=== PATIENT | male | born 1945 | race Caucasian/White ===

== ENCOUNTER 2019-12-10 12:46 | Inpatient (IN) | payer OTHER ==
[~2019-12-10] VITALS: Ht 180.3 cm; Wt 71.0 kg
[2019-12-10 13:43] LABS: Eosinophils # (auto) 0 uL; Eosinophils % (auto) 0.4 % (0.0-7.0); Mean Corpuscular Volume 70.8 fL (80.0-100.0)
[2019-12-10 13:44] LABS: Basophils # (auto) 0 uL; Basophils % (auto) 0.3 % (0.0-2.0); Hematocrit 36.7 % (41.0-53.0); Mean Corpuscular Hemoglobin 23.2 pg (28.0-32.0); Mean Corpuscular Hgb Conc. 32.7 g/dL (32.0-36.0); Monocytes # (auto) 1.8 uL; Monocytes % (auto) 15.8 % (0.0-12.0); Neutrophils # (auto) 8.4 uL; Neutrophils % (auto) 74.5 % (37.0-80.0); Platelet Count (auto) 134 10^3/uL (140-450); Red Blood Cells 5.18 10^6/uL (4.5-5.90); Red Cell Distribution Width 16.1 % (11.8-14.3); White Blood Cell 11.2 10^3/uL (4.4-10.8)
[2019-12-10] MEDS ORDERED: TETANUS-DIPTH-ACEL PERTUSSIS 0.5ML SYR Tdap IM ONE (13:45)
[2019-12-10 13:59] LABS: Albumin 3.6 g/dL (3.4-5.0); Anion Gap 7 (5-15); Blood Urea Nitrogen 15 mg/dL (7-18); Calcium 8.4 mg/dL (8.5-10.1); Carbon Dioxide 28 mmol/L (21-32); Chloride 92 mmol/L (98-107); Glucose 116 mg/dL (74-106); Potassium 3.8 mmol/L (3.5-5.1); Sodium 127 mmol/L (136-145)
[2019-12-10 14:05] LABS: Alanine Aminotransferase 18 U/L (16-61); Alkaline Phosphatase 109 U/L (45-117); Aspartate Aminotransferase 17 U/L (15-37); BUN/Creatinine Ratio 19.5; Bilirubin, Total 0.4 mg/dL (0.2-1.0); GFR African American 126 mL/min; GFR Non-African American 104 mL/min; Total Protein 6.9 g/dL (6.4-8.2)
[2019-12-10] MEDS ORDERED: levoFLOXacin 500MG 100 ML IV ONE (15:30)
[2019-12-10] MEDS ORDERED: traMADol HCL 50 MG TAB PO PRN (16:45)
[2019-12-10] MEDS ORDERED: ALBUTEROL SULF 2.5 MG/0.5ML(0.5%) NEB SOLN NEB PRN (16:45)
[2019-12-10] MEDS ORDERED: LACTULOSE 20Gm/30ML SOLN PO PRN ×2 (16:45)
[2019-12-10] MEDS ORDERED: NITROGLYCERIN 0.4 MG SL TAB SL PRN (16:45)
[2019-12-10] MEDS ORDERED: ACETAMINOPHEN 500 MG TAB PO PRN (16:45)
[2019-12-10] MEDS ORDERED: ONDANSETRON HCL 4 MG/2 ML VIAL IV PRN (16:45)
[2019-12-10] MEDS ORDERED: MORPHINE SULF INJ 2 MG/ML SYRINGE 1ML IV PRN (16:45)
[2019-12-10] MEDS ORDERED: LABETALOL HCL 5 MG/ML ML 20ML VIAL IV PRN (16:45)
[2019-12-10] MEDS: SODIUM CHLORIDE 0.9% 1,000 ML IV SCH (16:59)
[2019-12-10] MEDS: DOXYCYCLINE 100MG/250ML 250 ML IV SCH ×2 (16:59→19:00)
[2019-12-10 17:10] LABS: CRP High Sensitivity 0.25 mg/dL (< 0.3)
[2019-12-10] MEDS: ALBUTEROL SULF 2.5 MG/0.5ML(0.5%) NEB SOLN NEB SCH (17:25)
[2019-12-10] MEDS: IPRATROPIUM BROM 0.5 MG/2.5ML INH SOL NEB SCH (17:25)
[2019-12-10] MEDS ORDERED: methylPREDNISolone SOD SUCC 40 MG/ML VL IV ONE (17:30)
[2019-12-10 18:00] VITALS: BP 117/57
--- NOTE | 2019-12-10 18:37 | NUR ---
PATIENT ARRIVED TO UNIT DID NOT RECEIVE REPORT. PATIENT ALERT AND ORIENTED X4 PATIENT ORIENTED TO UNIT STAFF CALL LIGHT POC PATIENT VERBALIZED UNDERSTANDING. DENIES ALL PAIN SOB AND DISTRESS AT THIS TIME. PATIENT AMBULATED TO BATHROOM WITH A STEADY GAIT BUT WAS EDUCATED TO CALL WHENEVER HE NEEDS TO GET UP. BED IS IN LOWEST LOCKED POSITION CALL LIGHT WITHIN REACH WILL CONTINUE TO MONITOR
[2019-12-10] MEDS ORDERED: MET50T PO (19:04)
[2019-12-10] MEDS ORDERED: HYDR-4296 PO (19:04)
[2019-12-10] MEDS ORDERED: LISI-646 PO (19:04)
[2019-12-10] MEDS ORDERED: HYDR25TA4 PO (19:04)
[2019-12-10] MEDS ORDERED: AMLO5TAB15 PO (19:04)
[2019-12-10] MEDS ORDERED: FOLI1TAB6 PO (19:04)
[2019-12-10] MEDS ORDERED: ASPI-404 PO (19:05)
--- NOTE | 2019-12-10 19:31 | NUR ---
Opening Shift Note Received report and assumed care of patient. Patient is awake and alert. No signs or symptoms of distress noted, patient currently denies pain. Instructed patient on plan of care and to call for assistance as needed. Will continue to monitor.
[2019-12-10 21:57] VITALS: BP 133/77
[2019-12-10] MEDS ORDERED: methylPREDNISolone SOD SUCC 40 MG/ML VL IV SCH (22:00)
[2019-12-10] MEDS ORDERED: ATORVASTATIN 20 MG TAB PO SCH (22:00)
--- NOTE | 2019-12-11 00:39 | NUR ---
Patient refusing midnight troponin lab draws Patient refusing lab draws. Explained risks and benefits of having labs drawn, continues to refuse. Will continue to monitor.
[2019-12-11] MEDS: ALBUTEROL SULF 2.5 MG/0.5ML(0.5%) NEB SOLN NEB SCH ×3 (00:43→11:42)
[2019-12-11] MEDS: IPRATROPIUM BROM 0.5 MG/2.5ML INH SOL NEB SCH ×3 (00:43→11:42)
[2019-12-11] MEDS: DOXYCYCLINE 100MG/250ML 250 ML IV SCH (04:40)
[2019-12-11 04:50] LABS: Urine Bacteria FEW /hpf (None Seen); Urine Blood Negative /uL (Negative); Urine Hyaline Cast FEW /lpf (0 - 2); Urine Mucus FEW (None Seen); Urine Specific Gravity 1.012 (1.001-1.035); Urine WBC 1 /hpf (0 - 3)
[2019-12-11 04:58] LABS: Alcohol, Urine < 3.0 mg/dL (0-5); Amphetamine Screen, Urine NEGATIVE (NEGATIVE); Barbiturate Scree,Urine NEGATIVE (NEGATIVE); Benzodiazephine Screen, Urine NEGATIVE (NEGATIVE); Cannabinoid Screen, Urine NEGATIVE (NEGATIVE); Cocaine Screen, Urine NEGATIVE (NEGATIVE); Opiate Scree,Urine NEGATIVE (NEGATIVE); Phencyclidine Screen, Urine NEGATIVE (NEGATIVE)
[2019-12-11 04:59] LABS: Basophils # (auto) 0 uL; Eosinophils # (auto) 0 uL; Hemoglobin 12.4 g/dL (13.5-17.5); Lymphocytes # (auto) 0.5 uL; Monocytes # (auto) 0.1 uL; Neutrophils % (auto) 91.6 % (37.0-80.0)
[2019-12-11 05:00] VITALS: BP 130/73
[2019-12-11 05:01] LABS: Basophils % (auto) 0.1 % (0.0-2.0); Hematocrit 37.1 % (41.0-53.0); Mean Corpuscular Hemoglobin 23.5 pg (28.0-32.0); Mean Corpuscular Hgb Conc. 33.5 g/dL (32.0-36.0); Mean Corpuscular Volume 70.2 fL (80.0-100.0); Monocytes % (auto) 1.3 % (0.0-12.0); Platelet Count (auto) 125 10^3/uL (140-450); Red Blood Cells 5.28 10^6/uL (4.5-5.90); Red Cell Distribution Width 15.9 % (11.8-14.3); White Blood Cell 6.6 10^3/uL (4.4-10.8)
[2019-12-11 05:19] LABS: Potassium 3.9 mmol/L (3.5-5.1)
[2019-12-11 05:26] LABS: Albumin 3.4 g/dL (3.4-5.0); BUN/Creatinine Ratio 16.7; Bilirubin, Total 0.6 mg/dL (0.2-1.0); Calcium 8.5 mg/dL (8.5-10.1); Total Protein 6.8 g/dL (6.4-8.2)
[2019-12-11] MEDS: SODIUM CHLORIDE 0.9% 1,000 ML IV SCH (06:53)
[2019-12-11 08:35] VITALS: BP 128/64
[2019-12-11] MEDS ORDERED: ASPirin 81 mg TAB PO SCH (10:00)
[2019-12-11] MEDS ORDERED: ENOXAPARIN SOD 40 MG/0.4 ML SYRINGE SC SCH (10:00)
[2019-12-11] MEDS ORDERED: NICOTINE 21MG/24 HR TOPICAL PATCH TD ONE (12:30)
[2019-12-11] MEDS ORDERED: LORazepam 2MG/ML-1ML VIAL IV PRN (12:30)
[2019-12-11] MEDS ORDERED: LORazepam 2MG/ML-1ML VIAL IV ONE (12:30)
[2019-12-11 13:00] VITALS: BP 108/65
--- NOTE | 2019-12-11 14:20 | NUR ---
PT IS LEAVING AGAINST MEDICAL ADVICE. MD DR. MARADIAGA WAS AT BEDSIDE THIS MORNING AND IS AWARE OF THE PATIENT'S WISHES. PRIMARY NURSE AND MD BOTH EDUCATED THE PT THAT THERE ARE NO BENEFITS TO LEAVING THE HOSPITAL AGAINST MEDICAL ADVICE. DISCUSSED RISKS WITH THE PATIENT INCLUDING STROKE AND ASSOCIATED S/S. PT VERBALIZED UNDERSTANDING AND IS ALERT AND ORIENTED X4. IV CATHETER WAS REMOVED, TIP INTACT. MADE CONTACT WITH PATIENT'S DAUGHTER ESA TO PICK THE PATIENT UP. DR MARADIAGA ALSO SPOKE WITH THE PATIENT'S DAUGHTER TODAY ABOUT THE PATIENT'S PLAN OF CARE WELL HIS WISHES TO LEAVE THE HOSPITAL.
[2019-12-11] MEDS ORDERED: DOXYCYCLINE 100 MG TAB/CAP PO SCH (22:00)
[2019-12-12] MEDS ORDERED: NICOTINE 21MG/24 HR TOPICAL PATCH TD SCH (10:00)
== END 2019-12-11 14:22 | disposition left against medical advice (07) | DRG 74 ==
LOC: ER 12:46 → EDBD 12:46 → TELE 12:47 → TELE-CENTR 18:38
PROVIDERS: ADMIT Internal Medicine; ATTEND Internal Medicine
DX: G90.8 Other disorders of autonomic nervous system (principal); E87.1 Hypo-osmolality and hyponatremia; R55 Syncope and collapse; D72.829 Elevated white blood cell count, unspecified; I25.10 Atherosclerotic heart disease of native coronary artery without angina pectoris; I10 Essential (primary) hypertension; D69.6 Thrombocytopenia, unspecified; F17.210 Nicotine dependence, cigarettes, uncomplicated; J43.2 Centrilobular emphysema; Z85.828 Personal history of other malignant neoplasm of skin; Z91.19 Patient's noncompliance with other medical treatment and regimen; Z95.1 Presence of aortocoronary bypass graft; Z88.0 Allergy status to penicillin; Z53.29 Procedure and treatment not carried out because of patient's decision for other reasons
CPT/HCPCS: 36415; 70450; 71045; 71250; 72131; 80053; 80307; 81001; 82550; 83880; 84443; 84484; 85025; 85379; 85652; 86141; 87070; 87205; 90471; 90715; 93005; 93306; 93886; 94640; 96365; 96367; 96375; G0378; J1956; J3490

== ENCOUNTER 2020-07-31 13:14 | Emergency (ER) | payer OTHER ==
[~2020-07-31] VITALS: Ht 180.3 cm; Wt 68.0 kg
[~2020-07-31 13:14] MED LIST: AMLO5TAB15 PO; ASPI-543 PO; FOLI1TAB6 PO; HYDR-4296 PO; HYDR25TA4 PO; LISI-646 PO; MET50T PO
[2020-07-31] MEDS ORDERED: SODIUM CHLORIDE 0.9% 1,000 ML IV ONE (14:30)
[2020-07-31] MEDS ORDERED: TAMSULOSIN HYDROCHLORIDE 0.4 MG CAP PO ONE (14:30)
[2020-07-31 15:23] VITALS: BP 126/62
[2020-07-31 15:31] LABS: Urine Bacteria NONE SEEN /hpf (None Seen); Urine Blood Negative /uL (Negative); Urine WBC 3 /hpf (0 - 3)
== END 2020-07-31 16:01 | disposition home or self-care (01) ==
LOC: EDBD 13:14 → ER 13:14
DX: R33.9 Retention of urine, unspecified (principal); R30.0 Dysuria; I11.0 Hypertensive heart disease with heart failure; I50.9 Heart failure, unspecified; J44.9 Chronic obstructive pulmonary disease, unspecified; E78.5 Hyperlipidemia, unspecified; Z88.0 Allergy status to penicillin; Z88.1 Allergy status to other antibiotic agents; Z79.899 Other long term (current) drug therapy
CPT/HCPCS: 81001

== ENCOUNTER 2020-08-11 00:59 | Inpatient (IN) | payer OTHER ==
[~2020-08-11] VITALS: Ht 180.3 cm; Wt 61.9 kg
[2020-08-11 04:30] LABS: Hemoglobin 12.1 g/dL (13.5-17.5); Mean Corpuscular Hemoglobin 21.8 pg (28.0-32.0); Mean Corpuscular Hgb Conc. 32.7 g/dL (32.0-36.0); Mean Corpuscular Volume 66.6 fL (80.0-100.0); Platelet Count (auto) 146 10^3/uL (140-450); Red Blood Cells 5.54 10^6/uL (4.5-5.90); White Blood Cell 18.3 10^3/uL (4.4-10.8)
[2020-08-11] MEDS ORDERED: ALBUTEROL SULF 2.5 MG/0.5ML(0.5%) NEB SOLN NEB ONE (04:30)
[2020-08-11] MEDS ORDERED: IPRATROPIUM BROM 0.5 MG/2.5ML INH SOL NEB ONE (04:30)
[2020-08-11 04:32] LABS: Red Cell Distribution Width 20.1 % (11.8-14.3)
[2020-08-11 04:33] LABS: Basophils % (manual) 0 (0.0-2.0); Blast Cells 0; Eosinophils % (manual) 0 (0-7); Metamyelocytes % 0; Myelocytes % 0; Promyelocytes % 0; Reactive Lymphocytes 0
[2020-08-11 04:35] LABS: Urine Bacteria NONE SEEN /hpf (None Seen); Urine Blood 2+ /uL (Negative); Urine Hyaline Cast FEW /lpf (0 - 2); Urine Mucus FEW (None Seen); Urine Specific Gravity 1.023 (1.001-1.035); Urine WBC 21 /hpf (0 - 3)
[2020-08-11] MEDS ORDERED: ALBUTEROL SULF 2.5 MG/0.5ML(0.5%) NEB SOLN ONE (04:42)
[2020-08-11] MEDS ORDERED: IPRATROPIUM BROM 0.5 MG/2.5ML INH SOL ONE (04:42)
[2020-08-11 04:49] LABS: Alanine Aminotransferase 33 U/L (16-61); Albumin 2.2 g/dL (3.4-5.0); Anion Gap 7 (5-15); BUN/Creatinine Ratio 35.6; Blood Urea Nitrogen 16 mg/dL (7-18); Calcium 8.4 mg/dL (8.5-10.1); Carbon Dioxide 32 mmol/L (21-32); Chloride 89 mmol/L (98-107); GFR African American 235 mL/min; GFR Non-African American 194 mL/min; Glucose 101 mg/dL (74-106); Magnesium 1.9 mg/dL (1.6-2.6); Potassium 4.2 mmol/L (3.5-5.1); Sodium 128 mmol/L (136-145)
[2020-08-11 04:52] LABS: INR 1.07 (0.9-1.15); Partial Thromboplastin Time 28.5 sec (23.0-31.2)
[2020-08-11 04:57] LABS: Alkaline Phosphatase 142 U/L (45-117); Aspartate Aminotransferase 26 U/L (15-37); Bilirubin, Total 0.7 mg/dL (0.2-1.0); Total Protein 6.3 g/dL (6.4-8.2)
[2020-08-11 05:08] LABS: Band Neutrophils % (manual) 13; Lymphocytes % (manual) 7 (10.0-50.0); Monocytes % (manual) 13 (0-12)
[2020-08-11] MEDS ORDERED: LORazepam 2MG/ML-1ML VIAL IM ONE (06:15)
[2020-08-11] MEDS ORDERED: diphenhdrAMINE HCL 50 MG/1 ML VL IM ONE (06:15)
[2020-08-11] MEDS ORDERED: ONDANSETRON HCL 4 MG/2 ML VIAL IV PRN (09:15)
[2020-08-11] MEDS ORDERED: ALBUTEROL SULF 2.5 MG/0.5ML(0.5%) NEB SOLN NEB PRN (09:15)
[2020-08-11] MEDS ORDERED: ACETAMINOPHEN 500 MG TAB PO PRN (09:15)
[2020-08-11] MEDS ORDERED: MORPHINE SULF INJ 2 MG/ML SYRINGE 1ML IV PRN ×2 (09:15)
[2020-08-11] MEDS ORDERED: NITROGLYCERIN 0.4 MG SL TAB SL PRN (09:15)
[2020-08-11] MEDS ORDERED: traMADol HCL 50 MG TAB PO PRN (09:15)
[2020-08-11] MEDS ORDERED: cefTRIAXone 1GM/50ML D5W 50 ML IV ONE (09:15)
[2020-08-11] MEDS ORDERED: LACTULOSE 20Gm/30ML SOLN PO PRN (09:15)
[2020-08-11] MEDS: methylPREDNISolone SOD SUCC 40 MG/ML VL IV SCH ×2 (09:48→21:51)
[2020-08-11] MEDS: FAMOTIDINE 20 MG TAB PO SCH ×2 (09:49→21:51)
[2020-08-11] MEDS: AZITHROMYCIN 500MG/ 250ML 250 ML IV SCH (09:49)
[2020-08-11] MEDS ORDERED: ENOXAPARIN SOD 40 MG/0.4 ML SYRINGE SC SCH (10:00)
[2020-08-11] MEDS: SODIUM CHLORIDE 0.9% 1,000 ML IV SCH (13:00)
[2020-08-11] MEDS ORDERED: SODIUM CHLORIDE 0.9% 1,750 ML IV ONE (13:00)
--- NOTE | 2020-08-11 14:25 | NUR ---
Telemetry admit from ER [facility] admitted to Telemetry unit after SBAR received. Patient oriented to ANGEL BARBOSA RN primary RN, unit, room, bed, and unit policies regarding patient care and visiting hours. Patient now on continuous telemetry monitoring, tele box #82 and telemetry reading on arrival to unit is SR. Patient placed on bedside oxygen, weighed by bedscale and encouraged to call if they need something. All questions and concerns addressed, patient verbalized understanding.
--- NOTE | 2020-08-11 16:00 | NUR ---
THIS RN NOTIFIED THE PRIMARY RN THAT THE PATIENT REQUIRES A MRSA OF THE NARES PER PROTOCOL. PRIMARY RN VERBALIZED UNDERSTANDING.
[2020-08-11 16:34] VITALS: BP 114/67
[2020-08-11] MEDS: ALBUTEROL SULF 2.5 MG/0.5ML(0.5%) NEB SOLN NEB SCH ×3 (17:40→23:45)
[2020-08-11] MEDS: IPRATROPIUM BROM 0.5 MG/2.5ML INH SOL NEB SCH ×3 (17:40→23:45)
--- NOTE | 2020-08-11 19:20 | NUR ---
Opening Shift Note Assumed care of patient after receiving report from ALEIDA Leahy. Patient is awake and alert with no S/S of distress/SOB or pain. Call light within reach, HOB semi fowlers, bed in lowest, locked position x2 side rails. Instructed on POC and to call for assist PRN, will continue to monitor for changes Q1hr and PRN.
[2020-08-11 21:33] VITALS: BP 152/69
[2020-08-11] MEDS: cefTRIAXone 1GM/50ML D5W 50 ML IV SCH (21:51)
[2020-08-11 22:00] VITALS: BP 143/69
--- NOTE | 2020-08-11 22:00 | NUR ---
BP reassessed RN was made aware of elevated BP of 152/69 and HR 62. RN reassessed BP after readjusting cuff position and had reading of 143/69 and HR 63.
--- NOTE | 2020-08-11 23:00 | NUR ---
Scheduled medication not due at this time. Scheduled 23:00 IV fluids NS @100 ml/hr not due, current bag still running with approximately 700 ml remaining. Will administer when current bag complete.
[2020-08-12 02:44] VITALS: BP 143/69
[2020-08-12] MEDS: SODIUM CHLORIDE 0.9% 1,000 ML IV SCH ×2 (02:49→10:12)
[2020-08-12 04:35] VITALS: BP 144/68
--- NOTE | 2020-08-12 05:37 | NUR ---
BM noted, patient cleaned and optifoam to sacrum reapplied. Patient tolerated intervention well.
[2020-08-12] MEDS: ALBUTEROL SULF 2.5 MG/0.5ML(0.5%) NEB SOLN NEB SCH ×3 (06:59→18:37)
[2020-08-12] MEDS: IPRATROPIUM BROM 0.5 MG/2.5ML INH SOL NEB SCH ×3 (06:59→18:37)
--- NOTE | 2020-08-12 08:00 | NUR ---
OPENING SHIFT NOTE: PATIENT RESTING IN BED, AWAKE A/OX3. PATIENT UPSET ABOUT CHANNEL OF TV HE IS WATCHING, THIS RN ATTEMPTED TO SHOW PATIENT HOW TO USE REMOTE/CALL LIGHT. PATIENT GETTING MORE FRUSTRATED, AND UNABLE TO RETURN DEMONSTRATION. BREAKFAST TRAY DELIVERED, ASSISTED MINIMALLY. PATIENT REPOSITIONED FOR COMFORT, RESPIRATIONS EVEN AND UNLABORED, NOTED A MOIST NON-PRODUCTIVE COUGH. BAUTISTA HUNG BELOW BLADDER, FREE OF KINKS. BED ALARM ON FALL PRECAUTIONS IN PLACE, WILL CONTINUE TO MONITOR.
[2020-08-12 08:32] VITALS: BP 136/67
[2020-08-12] MEDS ORDERED: ACETYLCYSTEINE 10 %(100MG/ML) SOL 4ML NEB SCH (10:00)
[2020-08-12] MEDS: cefTRIAXone 1GM/50ML D5W 50 ML IV SCH ×2 (10:12→21:52)
[2020-08-12] MEDS: methylPREDNISolone SOD SUCC 40 MG/ML VL IV SCH ×2 (10:12→21:52)
[2020-08-12] MEDS: FAMOTIDINE 20 MG TAB PO SCH ×2 (10:12→21:52)
[2020-08-12] MEDS: AZITHROMYCIN 500MG/ 250ML 250 ML IV SCH (10:13)
--- NOTE | 2020-08-12 10:50 | NUR ---
WOUND CARE NOTE: WOUND CARE IN TO SEE PATIENT PER WOUND CARE REQUEST. PATIENT ADMITTED TO [facility] FOR PNEUMONIA, SEPSIS, UTI, AND MASTOIDITIS. BEDSIDE NURSE NOTED SKIN INTEGRITY ISSUE UPON ADMISSION. PHOTOGRAPHS TAKEN AT THAT TIME FOR REFERENCE. PATIENT CONI SCORE IS 12. PATIENT NOTED TO HAVE NON-BLANCHABLE REDNESS TO SACRUM. CLEANSED WITH NORMAL SALINE, PATTED DRY, APPLIED ZGUARD AND COVERED WITH OPTIFOAM GENTLE SACRAL DRESSING. RECOMMEND: FREQUENT Q2HOUR REPOSITIONING CONDITION PERMITS. REDISTRIBUTE PRESSURE UTILIZING PILLOWS AND WEDGES. BID/PRN DRESSING CHANGE. DIETARY CONSULT. SKIN/WOUND CARE PLAN. CONTINUED MONITORING BY WOUND CARE TEAM. Addendum: 08/12/20 at 1509 by LILIYA OSEGUERA RN RN Amended: Links added.
[2020-08-12] MEDS: NICOTINE 14 MG/24HR TOPICAL PATCH TD SCH (11:53)
--- NOTE | 2020-08-12 12:21 | NUR ---
Nutrition Assessment/Consult Notes Please refer to link for full assessment notes. Est Energy needs: 4374-9807 kcals (23-25 kcal/kgBW) Est Protein needs: 65-71 gms/day (1.0-1.1 gm/kgBW) Will continue to monitor and reassess prn. Addendum: 08/12/20 at [address] Amended: Links added.
[2020-08-12 13:00] VITALS: BP 134/64
--- NOTE | 2020-08-12 13:30 | NUR ---
MD HOLLIDAY ROUNDING: PATIENT REQUESTING TO SPEAK WITH MD REGARDING PREDNISONE, MD HOLLIDAY ADDRESSED PATIENT CONCERNS AT BEDSIDE, PATIENT VERBALIZED UNDERSTANDING.
--- NOTE | 2020-08-12 13:56 | NUR ---
PATIENT REFUSING LABS X2 TODAY: PATIENT REPORTS, "THEY POKED MY ARMS 350 TIMES! I HAVE NO BLOOD LEFT!" THIS RN SPENT >15MIN TRYING TO EDUCATE PATIENT, AND WAS UNSUCCESSFUL.
[2020-08-12] MEDS: ACETYLCYSTEINE 10 %(100MG/ML) SOL 4ML NEB SCH ×2 (15:39→18:37)
[2020-08-12 16:15] VITALS: BP 134/64
--- NOTE | 2020-08-12 16:20 | NUR ---
assessment re: consult for living situation and needing help Patient is a 74 year old male. Per patients daughter Bhavani Prior to admission patient lived home alone and functioned with Des assistance. Per Bhavani she is with patient 12 hours a day. Per Bhavani patient has a hospital bed, wheelchair, bedside commode, and rollator for home use. Patients PCP is Dr Walsh in [place]. Per Bhavani the extra help she needs is home health for PT and home health aid. Patient will also benefit from home health safety. Bhavani verbalized understanding and agreed to discharge plan home. Addendum: 08/12/20 at 1626 by Gem DIANE Amended: Links added.
--- NOTE | 2020-08-12 18:33 | NUR ---
CARE ENDORSED TO NOC RN.
--- NOTE | 2020-08-12 19:00 | NUR ---
Opening Shift Note Assumed care of patient after receiving report from day RN. Patient is awake and alert with no S/S of distress/SOB or pain. Call light within reach, bed in lowest, locked position x2 side rails. Instructed on POC and to call for assist PRN, will continue to monitor for changes Q1hr and PRN.
--- NOTE | 2020-08-12 20:33 | NUR ---
Call from daughter Received call from patients daughter Bhavani requesting information and update on plan of care regarding patient. No password set up at this time, verified with patient that it is okay to update daughter and discuss information. Set up password with daughter: Delvis. Per daughter Bhavani, she is power of privacy attorney. Per daughter Bhavani, patient had previously been seen at [facility] where he was being treated with Levofloxacin for a fungal pneumonia with an additional PO antibiotic. Patients daughter is requesting that patient be placed back on Levofloxacin instead of other antibiotics. Per daughter Bhavani, patient was supposed to receive home health for PT and the administration of the IV antibiotic levofloxacin but no one had seen patient for home health. Daughter was updated on plan of care and call was transferred into patient room to talk to patient.
--- NOTE | 2020-08-12 20:45 | NUR ---
Password updated Password: Delvis. Updated by daughter (POA). Updated in interventions.
[2020-08-12 21:00] VITALS: BP 134/64
[2020-08-13] MEDS: ALBUTEROL SULF 2.5 MG/0.5ML(0.5%) NEB SOLN NEB SCH ×4 (00:18→19:11)
[2020-08-13] MEDS: IPRATROPIUM BROM 0.5 MG/2.5ML INH SOL NEB SCH ×4 (00:18→19:12)
[2020-08-13] MEDS: ACETYLCYSTEINE 10 %(100MG/ML) SOL 4ML NEB SCH ×4 (00:19→19:12)
[2020-08-13 05:00] VITALS: BP_SYST 102; BP_SYST 160; BP_DIAS 74; BP_DIAS 78
[2020-08-13 09:00] VITALS: BP 150/100
[2020-08-13] MEDS: methylPREDNISolone SOD SUCC 40 MG/ML VL IV SCH (09:00)
[2020-08-13] MEDS: cefTRIAXone 1GM/50ML D5W 50 ML IV SCH ×2 (09:00→22:39)
[2020-08-13] MEDS: AZITHROMYCIN 500MG/ 250ML 250 ML IV SCH (09:01)
[2020-08-13] MEDS: ENOXAPARIN SOD 40 MG/0.4 ML SYRINGE SC SCH (09:02)
[2020-08-13] MEDS: FAMOTIDINE 20 MG TAB PO SCH ×2 (09:02→22:39)
[2020-08-13] MEDS: NICOTINE 14 MG/24HR TOPICAL PATCH TD SCH (09:02)
--- NOTE | 2020-08-13 09:35 | NUR ---
PHYSICAL THERAPY: PT SHANIQUA REPORTED PATIENT ABLE TO STAND AT BEDSIDE. PATIENT SUSPICIOUS OF EQUIPMENT, NOT TRUSTING THE BEDSIDE CHAIR'S STURDINESS. WILL CONTINUE TO MONITOR.
--- NOTE | 2020-08-13 10:18 | NUR ---
MD MG MOLINA.
--- NOTE | 2020-08-13 11:08 | NUR ---
INCENTIVE SPIROMETER: PATIENT ABLE TO REACH 1000ML ON IS. PATIENT REPORTS THAT HE HAS "THIS MACHINE AT HOME." PATIENT AGREES TO PERFORM IS 10X PER HOUR.
--- NOTE | 2020-08-13 11:09 | NUR ---
NEW IV: LEFT UPPER ARM PIV PATIENT REPORTING PAIN. IV DISCONTINUED PER PATIENT REQUEST AND AGREE WITH NEW PIV IN OTHER ARM. AFTER ONE ATTEMPT, 22G PLACED IN THE LEFT FA.
[2020-08-13 13:00] VITALS: BP 142/72
--- NOTE | 2020-08-13 14:01 | NUR ---
PATIENT REFUSING LABS. EDUCATION GIVEN, PATIENT NON-COMPLIANT.
[2020-08-13 17:00] VITALS: BP 153/95
--- NOTE | 2020-08-13 18:45 | NUR ---
CARE ENDORSED TO NOC RN.
--- NOTE | 2020-08-13 19:20 | NUR ---
Opening Shift Note Assumed care of patient, awake and alert. On and off confusion. Q2 turn. No S/S of distress/SOB or pain. Instructed on POC and to call for assist PRN, will continue to monitor for changes Q1hr and PRN. Addendum: 08/14/20 at 0341 by OTTONIEL MCPHERSON RN RN Bed in low locked position, bed alarm on, nonskid socks on, call light within reach.
[2020-08-13 21:00] VITALS: BP 143/68
[2020-08-13 21:22] LABS: Basophils # (auto) 0 10 ^3/uL (0-0.2); Eosinophils # (auto) 0 10 ^3/uL (0-0.8); Hemoglobin 9.7 g/dL (13.5-17.5); Lymphocytes # (auto) 0.5 10 ^3/uL (0.4-5.4); White Blood Cell 10.8 10^3/uL (4.4-10.8)
[2020-08-13 21:23] LABS: Hematocrit 29.3 % (41.0-53.0); Lymphocytes % (auto) 4.5 % (10.0-50.0); Mean Corpuscular Hemoglobin 21.8 pg (28.0-32.0); Mean Corpuscular Hgb Conc. 33.1 g/dL (32.0-36.0); Mean Corpuscular Volume 65.9 fL (80.0-100.0); Monocytes # (auto) 1.7 10 ^3/uL (0-1.3); Monocytes % (auto) 15.9 % (0.0-12.0); Neutrophils # (auto) 8.6 10 ^3/uL (1.6-8.6); Neutrophils % (auto) 79.6 % (37.0-80.0); Platelet Count (auto) 151 10^3/uL (140-450); Red Blood Cells 4.45 10^6/uL (4.5-5.90); Red Cell Distribution Width 19.3 % (11.8-14.3)
[2020-08-13 21:37] LABS: Calcium 7.9 mg/dL (8.5-10.1); Potassium 4.3 mmol/L (3.5-5.1)
--- NOTE | 2020-08-13 23:00 | NUR ---
IV removal IV DC'd with clean sterile technique, catheter fully intact. Pressure dressing applied to site. Patient tolerated well. NOTE:
--- NOTE | 2020-08-13 23:21 | NUR ---
IV insertion IV access obtained, via clean sterile technique by inserting 22 gauge catheter at R Forearm after 2 attempt(s). IV secured properly. No trauma to site. Patient tolerated well. NOTE:
[2020-08-14] MEDS: IPRATROPIUM BROM 0.5 MG/2.5ML INH SOL NEB SCH ×4 (00:14→19:34)
[2020-08-14] MEDS: ALBUTEROL SULF 2.5 MG/0.5ML(0.5%) NEB SOLN NEB SCH ×4 (00:14→19:34)
[2020-08-14] MEDS: ACETYLCYSTEINE 10 %(100MG/ML) SOL 4ML NEB SCH ×4 (00:15→19:34)
[2020-08-14 05:00] VITALS: BP 146/73
--- NOTE | 2020-08-14 07:05 | NUR ---
Closing shift event Patient resting in bed. No sob, no chest pain, no acute distress seen. Bed in low locked position, call light within reach, non skid socks on. bed alarm on.
[2020-08-14 08:51] VITALS: BP 158/61
[2020-08-14] MEDS: cefTRIAXone 1GM/50ML D5W 50 ML IV SCH ×2 (09:31→21:25)
[2020-08-14] MEDS: FAMOTIDINE 20 MG TAB PO SCH ×2 (09:32→21:25)
[2020-08-14] MEDS: ENOXAPARIN SOD 40 MG/0.4 ML SYRINGE SC SCH (09:32)
[2020-08-14] MEDS: NICOTINE 14 MG/24HR TOPICAL PATCH TD SCH (09:34)
[2020-08-14] MEDS: methylPREDNISolone SOD SUCC 40 MG/ML VL IV SCH (09:35)
[2020-08-14] MEDS: AZITHROMYCIN 500MG/ 250ML 250 ML IV SCH (10:00)
--- NOTE | 2020-08-14 10:25 | NUR ---
DOCTOR MG AT BEDSIDE, INFORMED PATIENT HAS BEEN REFUSING BLOOD DRAWS FOR LAB. PATIENT STATED TO MD HE DOESNT WANT LABS DRAWN ON HIM " I'VE HAD TOO MANY HOLES PUT IN MY ARMS, AND IM NOT GETTING POKED AGAIN" MD INFORMED PATIENT OF RISK OF NOT HAVE LABS DRAWN PER PATIENT "I DONT CARE NO ONE IS TOUCHING ME''.
--- NOTE | 2020-08-14 10:28 | NUR ---
ATTEMPTED TO CONTACT PATIENTS DAUGHTER ESA MAFEDERICA IS FULL WILL TRY AGAIN.
[2020-08-14 13:00] VITALS: BP 129/75
--- NOTE | 2020-08-14 14:48 | NUR ---
SECOND ATTEMPT TO CONTACT PATIENTS DAUGHTER ESA NATHAN IS FULL, WILL TRY AGAIN.
--- NOTE | 2020-08-14 15:01 | NUR ---
D/C Planning Per social service consult for home health physical therapy and RN evaluation. Faxed clinical information to [facility]. Per Jyoti with [facility] patient has been accepted and service will start within 24-48hrs upon d/c day. KIMANI Rocha will obtain authorization from [employer].
--- NOTE | 2020-08-14 15:12 | NUR ---
I faxed home health order to Sallie at [facility] ([facility]) and requested authorization for [facility].
[2020-08-14 16:53] VITALS: BP 146/78
--- NOTE | 2020-08-14 19:30 | NUR ---
PATIENTS DAUGHTER DOWN AND FRONT LOBBY. RN SPOKE WITH ESA RN INFORMED ESA THAT DOCTOR HOLLIDAY WANTED TO SPEAK TO HER AND TRIED CALLING MULTIPLE TIME. PER ESA HER PHONE WAS ON SILENT ALL DAY. ESA WAS INFORMED THAT PATIENT WAS REFUSING LAB WORK AND DIDNT WANT ANY MEDICAL INTERVENTIONS. PER ESA SHE WANTS HER DAD TO GO BACK TO [facility] BECAUSE SHE "DIDNT TRUST THIS HOSPITAL" AND HER FATHER WAS DOING BETTER UNDER THERE CARE. ESA WAS INSTRUCTED TO CALL AND SPEAK WITH DOCTOR HOLLIDAY TOMORROW MORNING TO ADDRESS HER CONCERNS AND WISHES. ESA STATED SHE WOULD CALL BACK IN THE AM.
--- NOTE | 2020-08-14 19:35 | NUR ---
Opening Shift Note Assumed care of patient, awake and alert, with periods of confusion. No S/S of distress/SOB or pain. Instructed on POC and to call for assist PRN, will continue to monitor for changes Q1hr and PRN.
--- NOTE | 2020-08-14 21:30 | NUR ---
Patient refused lab draws despite explaining the reason and importance of it.
[2020-08-14 22:18] VITALS: BP 139/78
--- NOTE | 2020-08-15 00:56 | NUR ---
PT REQUESTED NOT TO BE WOKEN UP FOR HER MED NEB TX. PT IS SLEEPING COMFORTABLY NO DISTRESS NOTED @ THIS TIME.
[2020-08-15] MEDS: ALBUTEROL SULF 2.5 MG/0.5ML(0.5%) NEB SOLN NEB SCH ×4 (00:58→18:40)
[2020-08-15] MEDS: ACETYLCYSTEINE 10 %(100MG/ML) SOL 4ML NEB SCH ×4 (00:58→18:42)
[2020-08-15] MEDS: IPRATROPIUM BROM 0.5 MG/2.5ML INH SOL NEB SCH ×4 (00:58→18:40)
[2020-08-15 04:46] VITALS: BP 139/78
[2020-08-15 05:13] VITALS: BP 151/85
[2020-08-15 08:30] VITALS: BP 140/73
[2020-08-15] MEDS: ENOXAPARIN SOD 40 MG/0.4 ML SYRINGE SC SCH (09:46)
[2020-08-15] MEDS: cefTRIAXone 1GM/50ML D5W 50 ML IV SCH ×2 (09:46→21:27)
[2020-08-15] MEDS: FAMOTIDINE 20 MG TAB PO SCH ×2 (09:46→21:27)
[2020-08-15] MEDS: NICOTINE 14 MG/24HR TOPICAL PATCH TD SCH (09:46)
[2020-08-15] MEDS: methylPREDNISolone SOD SUCC 40 MG/ML VL IV SCH (09:47)
--- NOTE | 2020-08-15 09:55 | NUR ---
I called [facility] [phone] and spoke with Zaina, she said they did receive the home health request, [id number] will fax me a copy of the authorization.
[2020-08-15] MEDS: AZITHROMYCIN 500MG/ 250ML 250 ML IV SCH (10:00)
--- NOTE | 2020-08-15 10:26 | NUR ---
ATTEMPTED TO CONTACT PATIENTS DAUGHTER ESA VENITA WAS LEFT BY DOCTOR HOLLIDAY.
--- NOTE | 2020-08-15 10:40 | NUR ---
ATTEMPTED TO CONTACT PATIENTS DAUGHTER ESA VENITA LEFT BY RN.
--- NOTE | 2020-08-15 10:45 | NUR ---
PT refused PT stating he is tired from doing exercises this morning.
--- NOTE | 2020-08-15 12:27 | NUR ---
Respiratory note: PT DECLINED CPT WITH MEDNEB TX DUE TO PAIN IN CHEST. PT GIVEN MEDNEB TX WITHOUT CPT WITH NO ADVERSE EFFECTS NOTED. WILL CONTINUE TO MONITOR PT.
[2020-08-15 12:30] VITALS: BP 114/81
--- NOTE | 2020-08-15 14:40 | NUR ---
Nutrition Followup Notes Pt wt is 68.0 kg Pt was sleeping when rounded this morning. Pt is with a 2gm Sodium diet, appetite is good aeb ave 85% PO intake over 4 meals per RN doc. Est Energy needs: 8692-3286 kcals (23-25 kcal/kgBW) Est Protein needs: 65-71 gms/day (1.0-1.1 gm/kgBW) Will continue to monitor and reassess prn. LABS: Na 127 L, Gluc 149 L, Ca 7.9 L, Alb 2.2 L GI: Pt is incontinent, last BM noted on 08/12 per RN doc BS: 13 mod risk. Refer to wound assessment report for full details. PES: Altered nutrition related lab values r/t current medical condition aeb hypocalcemia, hypoalbuminemia Comments Will continue to monitor PO status, skin status, pertinent labs and weight trends. Will f/u in 3-5 days. 1) Continue to carefully monitor pt PO intake to meet at least 75% of meals 2) Consider a daily MVI with 500mg VitC BID 3) If albumin continues trending down consider Prostat 1 pkt BID 4) Continue current plan of care
--- NOTE | 2020-08-15 16:45 | NUR ---
Received phone call from monitor Baileyu that patient was in Afib with RVR, ekg performed and read to doctor Wang. New orders received see emr for orders.
[2020-08-15 17:00] VITALS: BP 139/74
[2020-08-15] MEDS ORDERED: METOPROLOL TARTRATE 1MG/1ML-5ML VIAL IV PRN (17:00)
--- NOTE | 2020-08-15 19:30 | NUR ---
Opening Shift Note Assumed care of patient, awake and alert. No S/S of distress/SOB or pain. Instructed on POC and to call for assist PRN, will continue to monitor for changes Q1hr and PRN.
--- NOTE | 2020-08-15 20:00 | NUR ---
Family updated on pt status Family(Bhavani) of [facility] updated on patient's status and condition. All questions and concerns addressed. upset and informed her that Dr. Piña and ALEIDA Acevedo was trying to reach her but no answer.
[2020-08-15 22:14] VITALS: BP 162/78
--- NOTE | 2020-08-15 23:00 | NUR ---
Family updated on pt status Family (Bhavani) of [facility] updated on patient's status and condition stated she gonna come soon to lemon picker her father and go AMA.
--- NOTE | 2020-08-15 23:20 | NUR ---
spoke with the daughter Bhavani and changed her mind stated she gonna come in the morning to brain picker her father.
[2020-08-16] MEDS: IPRATROPIUM BROM 0.5 MG/2.5ML INH SOL NEB SCH ×4 (00:41→12:46)
[2020-08-16] MEDS: ACETYLCYSTEINE 10 %(100MG/ML) SOL 4ML NEB SCH ×4 (00:41→12:46)
[2020-08-16] MEDS: ALBUTEROL SULF 2.5 MG/0.5ML(0.5%) NEB SOLN NEB SCH ×4 (00:41→12:46)
[2020-08-16 05:00] VITALS: BP 143/75
--- NOTE | 2020-08-16 06:59 | NUR ---
Respiratory note: PT REFUSED MEDNEB TX AT THIS TIME, SAYS HE DOES NOT WANT TO TAKE IT BECAUSE HE IS GOING HOME SOON. HR 64, RR 16, SPO2 92% ON ROOM AIR. BREATH SOUNDS DIMINISHED T/O. NO S/S OF DISTRESS. ADVISED PT TO CALL FOR RT IF HE CHANGES HIS MIND. RT NAME AND PAGER NUMBER ON WHITEBOARD.
--- NOTE | 2020-08-16 07:30 | NUR ---
Opening Shift Note Assumed patient care from NOC RN. Patient currently sitting up in bed for breakfast. No signs of distress at this time. Respirations even and unlabored. Will continue to monitor q1hr and PRN.
--- NOTE | 2020-08-16 07:32 | NUR ---
closing note endorsed care to day RN, no sign of distress at this time
--- NOTE | 2020-08-16 08:50 | NUR ---
Paged RT Paged RT for breathing treatment per patient request.
[2020-08-16 09:00] VITALS: BP 144/75
--- NOTE | 2020-08-16 09:16 | NUR ---
Respiratory note: PT CHANGED HIS MIND AND REQUESTING BREATHING TX AT THIS TIME. PT SEEN AND ADMINISTERED MEDNEB TX, REFUSED CPT. TOLERATED TX, NO ADVERSE REACTIONS. SPO2 93% ON ROOM AIR. BREATH SOUNDS COARSE CRACKLES. NO S/S OF DISTRESS.
--- NOTE | 2020-08-16 10:30 | NUR ---
at Bedside Dr. Piña at bedside discussing plan of care with patient. New orders received to discontinue greenfield catheter. Patient to discharge today.
[2020-08-16] MEDS ORDERED: DOXY-286 PO (10:34)
[2020-08-16] MEDS: ENOXAPARIN SOD 40 MG/0.4 ML SYRINGE SC SCH (10:37)
[2020-08-16] MEDS: cefTRIAXone 1GM/50ML D5W 50 ML IV SCH (10:37)
[2020-08-16] MEDS: methylPREDNISolone SOD SUCC 40 MG/ML VL IV SCH (10:37)
[2020-08-16] MEDS: FAMOTIDINE 20 MG TAB PO SCH (10:38)
--- NOTE | 2020-08-16 10:55 | NUR ---
Lynch Removed Lynch Catheter removed. No signs of distress at this time, patient tolerated well. Catheter intact. 1300cc clear, yellow urine drained.
[2020-08-16 11:46] VITALS: BP 144/75
--- NOTE | 2020-08-16 11:52 | NUR ---
Family in [facility] Patient's daughter, Bhavani, in [facility] to picker box operator patient. Patient's daughter informed that discharge is not yet completed and that patient will be sent home with antibiotics. Per Bhavani, will not sign AMA at this time, so patient may receive discharge instructions and prescriptions. Addendum: 08/16/20 at 1336 by DEWAYNE MORALES RN RN Per Bhavani, patient has a cardiology appointment [place] at [facility] for potential pacemaker placement."
--- NOTE | 2020-08-16 12:04 | NUR ---
[phone] and spoke with Clara to make her aware that patient is discharging home today-she said they did receive the authorization and they will send a nurse out within 24-48 hours. I made nurse Crouch aware that home health arrangements are complete.
--- NOTE | 2020-08-16 12:10 | NUR ---
Patient Dressed Patient ready for discharge, patient currently refusing to get into wheelchair so he "can have a few bites of taco." Patient finished taco and assisted to wheelchair by this RN and PT, Israel. Patient shows no signs of distress at this time. Respirations even and unlabored.
--- NOTE | 2020-08-16 12:16 | NUR ---
Lobby This RN and PT, Israel, waited with patient in the front lobby. Per volunteer desk, Patient's daughter, Bhavani, will return-she left due to patient not being ready. Daughter called, states "[she] is turning around."
--- NOTE | 2020-08-16 12:38 | NUR ---
Discharge Discharge instructions given as ordered. Encourage to follow up with PMD as instructed. All questions and concerns addressed. Patient verbalized understanding. Medication reconciliation form completed and copy given to patient. IV removed with catheter intact, pressure dressing applied, greenfield catheter removed-patient and daughter refused to stay for first void-urinal provided, patient educated on need for first void, patient verbalized understanding. Telemetry unit returned to ICU. Patient taken to vehicle via wheelchair with all personal belongings, accompanied by staff and family member. No distress noted at time of departure. Patient and family [facility] Discharge information provided for [facility]. Contact information provided. Addendum: 08/16/20 at 1342 by DEWAYNE MORALES RN RN Per Patient's daughter, patient arrived to ER with oxygen tank that has since been lost. Per patient and daughter, they do not want to stay to find tank or speak with charge. Per Bhavani, "We'll just go like that." patrol judgeMiguel, aware of situation.
[2020-08-16] MEDS: NICOTINE 14 MG/24HR TOPICAL PATCH TD SCH (13:25)
== END 2020-08-16 12:38 | disposition home health service (06) | DRG 871 ==
LOC: EDBD 00:59 → ER 01:03 → TELE 01:04 → ER 04:05 → TELE-WESTW 14:05 → WEST WING 17:40 → TELE-WESTW 19:33
PROVIDERS: ADMIT Internal Medicine; ATTEND Internal Medicine Pulmonary Disease
DX: A41.9 Sepsis, unspecified organism (principal); J18.9 Pneumonia, unspecified organism; J44.0 Chronic obstructive pulmonary disease with (acute) lower respiratory infection; C78.00 Secondary malignant neoplasm of unspecified lung; E87.1 Hypo-osmolality and hyponatremia; J44.1 Chronic obstructive pulmonary disease with (acute) exacerbation; J20.9 Acute bronchitis, unspecified; F03.90 Unspecified dementia, unspecified severity, without behavioral disturbance, psychotic disturbance, mood disturbance, and anxiety; E78.5 Hyperlipidemia, unspecified; R62.7 Adult failure to thrive; F17.210 Nicotine dependence, cigarettes, uncomplicated; F39 Unspecified mood [affective] disorder; I25.10 Atherosclerotic heart disease of native coronary artery without angina pectoris; R91.8 Other nonspecific abnormal finding of lung field; I11.0 Hypertensive heart disease with heart failure; I50.9 Heart failure, unspecified; Z53.20 Procedure and treatment not carried out because of patient's decision for unspecified reasons; Z85.828 Personal history of other malignant neoplasm of skin; Z91.19 Patient's noncompliance with other medical treatment and regimen; Z95.1 Presence of aortocoronary bypass graft; Z88.1 Allergy status to other antibiotic agents; Z88.8 Allergy status to other drugs, medicaments and biological substances
CPT/HCPCS: 36415; 70450; 71045; 71250; 76604; 80048; 80053; 81001; 83735; 83880; 84484; 85007; 85025; 85027; 85379; 85610; 85730; 87081; 87086; 93005; 94640; 94667; 94668; 97110; 97163; 97530; G0378; J0696

== ENCOUNTER 2020-10-30 20:37 | Emergency (ER) | payer OTHER ==
[~2020-10-30] VITALS: Ht 180.3 cm; Wt 63.5 kg
[~2020-10-30 20:37] MED LIST changes: +DOXY-286 PO
[2020-10-31] MEDS ORDERED: KETOROLAC TROMETH 60MG/2ML VIAL IM ONE (08:30)
[2020-10-31] MEDS ORDERED: cefTRIAXone SOD 1,000 MG VL IM ONE (08:30)
[2020-10-31] MEDS ORDERED: HYDROcodone-ACET 10/325MG TAB PO ONE (08:45)
[2020-10-31] MEDS ORDERED: LIDOCAINE 1% HCL (LOCAL ANESTH.) INJ 20ML MDV IJ ONE (08:45)
[2020-10-31] MEDS ORDERED: cloNIDine HCL 0.1 MG TAB PO ONE ×2 (10:00→11:30)
[2020-10-31] MEDS ORDERED: LISINOPRIL 20 MG TAB PO ONE (21:45)
[2020-11-01 01:30] VITALS: BP 162/67
== END 2020-11-01 06:38 | disposition home or self-care (01) ==
LOC: EDBD 20:37 → EDUNIT# 20:37 → ER 20:40
DX: S33.5XXA Sprain of ligaments of lumbar spine, initial encounter (principal); I11.0 Hypertensive heart disease with heart failure; I50.9 Heart failure, unspecified; J44.9 Chronic obstructive pulmonary disease, unspecified; E78.00 Pure hypercholesterolemia, unspecified; Z95.1 Presence of aortocoronary bypass graft; F17.210 Nicotine dependence, cigarettes, uncomplicated; Z20.828 Contact with and (suspected) exposure to other viral communicable diseases; Z79.899 Other long term (current) drug therapy; Z79.82 Long term (current) use of aspirin; Z88.0 Allergy status to penicillin; Z88.1 Allergy status to other antibiotic agents; X58.XXXA Exposure to other specified factors, initial encounter; Y93.89 Activity, other specified; Y92.89 Other specified places as the place of occurrence of the external cause; Y99.8 Other external cause status
CPT/HCPCS: 36415; 87426; 96372